=== PATIENT | male | born 1940 | race Caucasian/White ===

== ENCOUNTER → 2017-03-29 | Outpatient (CLI) | payer MEDICARE ==
[~2017-03-29] MED LIST: AMLO2.5T PO
== END | disposition home or self-care (01) ==
LOC: RAD 15:08
PROVIDERS: ATTEND Internal Medicine
DX: I67.82 Cerebral ischemia (principal); G31.9 Degenerative disease of nervous system, unspecified; H70.91 Unspecified mastoiditis, right ear; M50.30 Other cervical disc degeneration, unspecified cervical region; M48.02 Spinal stenosis, cervical region; M25.78 Osteophyte, vertebrae; R29.6 Repeated falls
CPT/HCPCS: 70551; 72141

== ENCOUNTER 2017-06-25 15:07 | Inpatient (IN) | payer MEDICARE ==
[~2017-06-25] VITALS: Ht 177.8 cm; Wt 88.3 kg
[2017-06-25] MEDS ORDERED: ASPI-496 PO (15:20)
[2017-06-25] MEDS ORDERED: SODIUM CHLORIDE FLUSH 10ML SYR IVF ONE (16:00)
[2017-06-25 16:19] LABS: HEMATOCRIT 45.8 % (39.2-51.8); HEMOGLOBIN 15.4 g/dL (13.7-18.0); WHITE BLOOD COUNT 9.1 x10^3/uL (3.4-10)
[2017-06-25 16:30] LABS: BLOOD UREA NITROGEN 15 mg/dL (7-18)
[2017-06-25 16:31] LABS: IS PT STATUS REG ER OR PRE ER? YES
[2017-06-25 16:37] LABS: ASPARTATE AMINO TRANSFERASE 26 U/L (15-37)
[2017-06-25] MEDS ORDERED: ACETAMINOPHEN 325 MG TABLET PO PRN (18:30)
[2017-06-25] MEDS ORDERED: POLYETHYLENE GLYCOL 17 GM PACKET PO PRN (18:30)
[2017-06-25] MEDS ORDERED: ONDANSETRON 2MG/ML, 2ML IVPush PRN (18:30)
[2017-06-25] MEDS ORDERED: BISACODYL 10 MG SUPP PR PRN (18:30)
[2017-06-25 20:18] VITALS: BP_SYST 121; BP_SYST 122; BP_SYST 124; BP_DIAS 80; BP_DIAS 84; BP_DIAS 86
[2017-06-25] MEDS: HEPARIN 5,000 UNITS/ML, 1ML SQ SCH (20:30)
[2017-06-25] MEDS: SODIUM CHLORIDE FLUSH 10ML SYR IVF SCH (20:30)
[2017-06-25 22:15] LABS: IS PT STATUS REG ER OR PRE ER? NO
[2017-06-26 02:00] VITALS: BP 110/71
[2017-06-26 04:26] VITALS: BP_SYST 119; BP_SYST 144; BP_SYST 149; BP_DIAS 86; BP_DIAS 91; BP_DIAS 96
[2017-06-26] MEDS: HEPARIN 5,000 UNITS/ML, 1ML SQ SCH ×2 (04:30→11:52)
[2017-06-26 05:43] LABS: IS PT STATUS REG ER OR PRE ER? NO
[2017-06-26 07:10] VITALS: BP 125/89
[2017-06-26] MEDS ORDERED: SENNA/DOCUSATE TABLET PO SCH (09:00)
[2017-06-26] MEDS: SODIUM CHLORIDE FLUSH 10ML SYR IVF SCH (09:00)
[2017-06-26] MEDS ORDERED: AMLODIPINE 2.5 MG TABLET PO SCH (09:00)
[2017-06-26] MEDS ORDERED: ASPIRIN 81 MG TABLET EC PO SCH (09:00)
[2017-06-26 14:43] VITALS: BP 126/82
== END 2017-06-26 16:04 | disposition home or self-care (01) | DRG 315 ==
LOC: ED 18:13 → EDIP 18:30 → 4WST 19:32 → DCLOUNGE 06-26 15:57
PROVIDERS: ADMIT Hospitalist; ATTEND Family Medicine
DX: I95.9 Hypotension, unspecified (principal); D68.69 Other thrombophilia; G20 Parkinson's disease; I48.2 Chronic atrial fibrillation; I35.1 Nonrheumatic aortic (valve) insufficiency; K76.0 Fatty (change of) liver, not elsewhere classified; G31.84 Mild cognitive impairment of uncertain or unknown etiology; I10 Essential (primary) hypertension; R55 Syncope and collapse; W18.39XA Other fall on same level, initial encounter; K80.20 Calculus of gallbladder without cholecystitis without obstruction; Y93.89 Activity, other specified; Y92.89 Other specified places as the place of occurrence of the external cause; Y99.8 Other external cause status
CPT/HCPCS: 36415; 70450; 71010; 76700; 80053; 83880; 84439; 84443; 84484; 85025; 85610; 85730; 93005; 93306; 93880; 99285; J1644; 92523-GN

== ENCOUNTER → 2017-09-18 | Outpatient (CLI) | payer MEDICARE ==
[~2017-09-18] MED LIST changes: +ASPI-496 PO
[2017-09-18 09:07] LABS: BASOPHILS # (AUTO) 0.02 x10^3/uL (0-0.1); BASOPHILS % (AUTO) 0 % (0-1); EOSINOPHILS # (AUTO) 0.22 x10^3/uL (0-0.4); EOSINOPHILS % (AUTO) 3 % (1-7); LYMPHOCYTES # (AUTO) 2.19 x10^3/uL (1-3.4); LYMPHOCYTES % (AUTO) 28 % (22-44); MD NO; MEAN CORPUSCULAR HEMOGLOBIN 32.1 pg (27.5-34.5); MEAN CORPUSCULAR HGB CONC 33.8 g/dL (33.2-36.2); MEAN CORPUSCULAR VOLUME 94.9 fL (81-97); MEAN PLATELET VOLUME 7.2 fL (7.4-10.4); MONOCYTES # (AUTO) 0.66 x10^3/uL (0.2-0.8); MONOCYTES % (AUTO) 9 % (2-9); NEUTROPHILS # (AUTO) 4.63 x10^3/uL (1.8-6.8); NEUTROPHILS % (AUTO) 60 % (42-75); PLATELET COUNT 256 x10^3/uL (130-400); RED BLOOD COUNT 5.01 x10^6/uL (4.38-5.82); RED CELL DISTRIBUTION WIDTH 13.7 % (9.4-14.8)
[2017-09-18 09:19] LABS: ALANINE AMINOTRANSFERASE 28 U/L (12-78); ALBUMIN 3.6 g/dL (3.4-5.0); ANION GAP 6 mmol/L (5-15); CALCIUM 8.4 mg/dL (8.5-10.1); CHLORIDE 110 mmol/L (98-107)
[2017-09-18 09:44] LABS: ALKALINE PHOSPHATASE 84 U/L (45-117); CREATININE 1.16 mg/dL (0.7-1.3); T4 (THYROXINE) 7.3 mcg/dL (4.5-12.1)
[2017-09-18 09:49] LABS: FOLATE LEVEL > 20.0 ng/mL (3.1-17.5)
[2017-09-18 10:48] LABS: HCT (SEDRATE) 47.6 % (39.2-51.8)
[2017-09-19 17:42] LABS: ANA SCREEN POSITIVE (Negative)
== END | disposition home or self-care (01) ==
LOC: LAB 08:47
PROVIDERS: ATTEND Specialist
DX: R27.0 Ataxia, unspecified (principal); Z79.899 Other long term (current) drug therapy
CPT/HCPCS: 36415; 80053; 82607; 82746; 84436; 84443; 84481; 85025; 85651; 86038; 86039

== ENCOUNTER 2018-05-14 16:52 | Emergency (ER) | payer MEDICARE ==
[~2018-05-14] VITALS: Ht 177.8 cm; Wt 90.0 kg
[~2018-05-14 16:52] MED LIST changes: -AMLO2.5T PO; +AMLO2.5T3 PO
[2018-05-14 17:25] LABS: BASOPHILS # (AUTO) 0.03 x10^3/uL (0-0.1); BASOPHILS % (AUTO) 0 % (0-1); EOSINOPHILS # (AUTO) 0.25 x10^3/uL (0-0.4); EOSINOPHILS % (AUTO) 4 % (1-7); LYMPHOCYTES # (AUTO) 2.59 x10^3/uL (1-3.4); LYMPHOCYTES % (AUTO) 36 % (22-44); MD NO; MEAN CORPUSCULAR HEMOGLOBIN 32.5 pg (27.5-34.5); MEAN CORPUSCULAR VOLUME 95.5 fL (81-97); MEAN PLATELET VOLUME 7.4 fL (7.4-10.4); MONOCYTES # (AUTO) 0.75 x10^3/uL (0.2-0.8); MONOCYTES % (AUTO) 11 % (2-9); NEUTROPHILS # (AUTO) 3.48 x10^3/uL (1.8-6.8); NEUTROPHILS % (AUTO) 49 % (42-75); PLATELET COUNT 255 x10^3/uL (130-400); RED BLOOD COUNT 4.85 x10^6/uL (4.38-5.82); RED CELL DISTRIBUTION WIDTH 13.8 % (9.4-14.8)
[2018-05-14] MEDS ORDERED: DIPH,PERTUSS(ACELL),TET VAC/PF 0.5 ML IM-VACC ONE ×2 (17:30→19:05)
[2018-05-14] MEDS ORDERED: LIDOCAINE 1%, 10ML INFIL ONE (17:30)
[2018-05-14 17:36] LABS: ALBUMIN 3.7 g/dL (3.4-5.0); ANION GAP 9 mmol/L (5-15); CALCIUM 8.8 mg/dL (8.5-10.1); CHLORIDE 110 mmol/L (98-107)
[2018-05-14] MEDS ORDERED: LIDOCAINE-MPF 1%, 5ML ONE (17:47)
[2018-05-14] MEDS ORDERED: LIDOCAINE 1%-EPI 1:100K, 30ML ONE (17:48)
[2018-05-14 18:41] VITALS: BP 158/102
[2018-05-14] MEDS ORDERED: BACITRACIN ZINC OINT 500U/GM, 0.9 GM ONE ×2 (18:43→19:16)
== END 2018-05-14 19:52 | disposition home or self-care (01) ==
LOC: ED 19:41
DX: S01.81XA Laceration without foreign body of other part of head, initial encounter (principal); I48.91 Unspecified atrial fibrillation; I10 Essential (primary) hypertension; Z79.899 Other long term (current) drug therapy; W19.XXXA Unspecified fall, initial encounter; Y93.H1 Activity, digging, shoveling and raking; Y99.8 Other external cause status; Y92.096 Garden or yard of other non-institutional residence as the place of occurrence of the external cause
CPT/HCPCS: 12053; 36415; 70450; 72125; 80048; 82040; 85025; 90471; 90715

== ENCOUNTER 2018-07-02 09:09 | Inpatient (IN) | payer MEDICARE ==
[~2018-07-02] VITALS: Ht 177.8 cm; Wt 88.9 kg
--- NOTE | 2018-07-02 09:15 | NUR ---
PT BETI ZAVALA AFTER A MGLF WHILE IN THE KITCHEN. PT WAS FOUND ON FLOOR BY . PT STATED HE WAS TRYING TO PUT ON HIS SOCKS IN THE KITCHEN. PT A&OX4. PT WITH HX: DEMENTIA. PT WITH LAC RIGHT HEAD. PT WITH PAIN ON RIGHT HIP. DRESSING ON HEAD APPLIED BY SALLY. PT PLACED IN ROOM AND PLACED ON BP AND CONT. PULSE OXIMETER. ASSESSMENT COMPLETED. MD AT BEDSIDE. IV STARTED IN FIELD BY SALLY. PT GIVEN WARM BLANKET. CALL LIGHT IN REACH. 2 SIDE RAILS UP.
[2018-07-02] MEDS ORDERED: FENTANYL PF 100 MCG/2ML ONE ×2 (09:22→12:06)
[2018-07-02] MEDS ORDERED: LIDOCAINE-MPF 1%, 5ML ONE (09:25)
[2018-07-02] MEDS: FENTANYL PF 100 MCG/2ML IVPush PRN ×6 (09:29→21:00)
[2018-07-02] MEDS ORDERED: LIDOCAINE 1%, 10ML INFIL ONE (09:30)
--- NOTE | 2018-07-02 09:32 | NUR ---
LAB INTO DRAW BLOOD. EKG DONE AND PRESENTED TO MD. WEBRE AT BEDSIDE FOR LIDOCAINE INJECTION
[2018-07-02] MEDS ORDERED: BACITRACIN ZINC OINT 500U/GM, 0.9 GM ONE (09:41)
--- NOTE | 2018-07-02 09:43 | NUR ---
PER PA, PT WITH ABRASION RIGHT EYEBROW. EYE CLEANED AND DRESSED WITH BACITRACIN DRESSING.
[2018-07-02 09:49] LABS: INTERNATIONAL NORMALIZED RATIO 1.09 (0.93-1.1); PROTHROMBIN TIME 11.5 Seconds (9.6-11.5)
[2018-07-02 09:50] LABS: ALANINE AMINOTRANSFERASE 29 U/L (12-78); ALBUMIN 3.8 g/dL (3.4-5.0); ANION GAP 5 mmol/L (5-15); CALCIUM 8.6 mg/dL (8.5-10.1); CHLORIDE 114 mmol/L (98-107); CREATININE 1.12 mg/dL (0.7-1.3)
[2018-07-02 09:52] LABS: ALKALINE PHOSPHATASE 86 U/L (45-117); BILIRUBIN,TOTAL 1.1 mg/dL (0.2-1.0); TOTAL PROTEIN 7.3 g/dL (6.4-8.2)
--- NOTE | 2018-07-02 10:36 | NUR ---
PT RESTING IN BED. PT A&OX4.
--- NOTE | 2018-07-02 10:54 | NUR ---
PT TAKEN TO RADIOLOGY
[2018-07-02] MEDS ORDERED: BIMA2.5D OP (11:05)
[2018-07-02] MEDS ORDERED: BRIM5DRO2 OP (11:06)
--- NOTE | 2018-07-02 11:08 | NUR ---
PT BACK FROM RADIOLOGY. PT PLACED ON BP, CARDIAC AND CONT. PULSE OXIMETER. AT BEDSIDE.
--- NOTE | 2018-07-02 11:11 | NUR ---
DR. CASTRO NEUROLOGIST AT BEDSIDE.
[2018-07-02 11:22] LABS: BASOPHILS % (AUTO) 0 % (0-1); EOSINOPHILS # (AUTO) 0.19 x10^3/uL (0-0.4); EOSINOPHILS % (AUTO) 2 % (1-7); LYMPHOCYTES # (AUTO) 1.83 x10^3/uL (1-3.4); LYMPHOCYTES % (AUTO) 19 % (22-44); MD NO; MEAN CORPUSCULAR HEMOGLOBIN 31.8 pg (27.5-34.5); MEAN CORPUSCULAR HGB CONC 33.3 g/dL (33.2-36.2); MEAN CORPUSCULAR VOLUME 95.7 fL (81-97); MEAN PLATELET VOLUME 8.2 fL (7.4-10.4); MONOCYTES # (AUTO) 0.36 x10^3/uL (0.2-0.8); MONOCYTES % (AUTO) 4 % (2-9); NEUTROPHILS % (AUTO) 75 % (42-75); PLATELET COUNT 230 x10^3/uL (130-400); RED BLOOD COUNT 5.01 x10^6/uL (4.38-5.82); RED CELL DISTRIBUTION WIDTH 13.6 % (9.4-14.8)
--- NOTE | 2018-07-02 12:52 | NUR ---
CONDOM CATH PLACED ON PATIENT. COULD NOT RETRACT FORESKIN AND CONDOM CATH PLACED ON FORESKIN. PATIENT CLEANED AND REPOSITIONED. REPORTS IMPROVEMENT IN PAIN
[2018-07-02] MEDS ORDERED: ONDANSETRON 2MG/ML, 2ML IVPush PRN (13:00)
[2018-07-02] MEDS ORDERED: POLYETHYLENE GLYCOL 17 GM PACKET PO PRN (13:00)
[2018-07-02] MEDS ORDERED: ACETAMINOPHEN 325 MG TABLET PO PRN (13:00)
[2018-07-02] MEDS ORDERED: LABETALOL 5MG/ML, 20ML IVPush PRN (13:00)
[2018-07-02] MEDS ORDERED: OXYcodone IR 5MG TABLET PO PRN (13:00)
[2018-07-02] MEDS ORDERED: ONDANSETRON ODT 4 MG PO PRN (13:00)
[2018-07-02] MEDS ORDERED: ENALAPRILAT 1.25 MG/ML, 2ML IVPush PRN (13:00)
[2018-07-02] MEDS ORDERED: morphine SULFATE 10 MG/ML, 1ML IVPush PRN (13:00)
--- NOTE | 2018-07-02 13:30 | NUR ---
pt with pain and medicated with fentanyl 50mcg iv.
--- NOTE | 2018-07-02 13:36 | NUR ---
ATTEMPTED TO CALL REPORT TO
--- NOTE | 2018-07-02 13:44 | NUR ---
REPORT CALLED TO DANA WHIPPLE.
--- NOTE | 2018-07-02 14:10 | NUR ---
pt transferred to floor.
[2018-07-02] MEDS: SODIUM CHLORIDE 0.9% 1,000 ML IV SCH (15:33)
[2018-07-02] MEDS ORDERED: TIMOLOL OP SCH (21:00)
[2018-07-02] MEDS ORDERED: BRIMONIDINE TART. OPHTH 0.2%, 5ML OP SCH (21:00)
[2018-07-02] MEDS ORDERED: BIMATOPROST OP SCH (21:00)
[2018-07-02] MEDS ORDERED: TIMOLOL OPHTH 0.5%, 5ML OP SCH (21:00)
[2018-07-02] MEDS ORDERED: BRIMONIDINE TARTRATE OP SCH (21:00)
[2018-07-03] MEDS: SODIUM CHLORIDE 0.9% 1,000 ML IV SCH ×2 (03:23→23:09)
[2018-07-03 04:00] VITALS: BP 137/89
[2018-07-03 05:51] LABS: ALBUMIN 3.2 g/dL (3.4-5.0); ANION GAP 5 mmol/L (5-15); CALCIUM 8.2 mg/dL (8.5-10.1); CHLORIDE 111 mmol/L (98-107)
[2018-07-03 05:56] LABS: ALANINE AMINOTRANSFERASE 24 U/L (12-78); ALKALINE PHOSPHATASE 80 U/L (45-117); CREATININE 0.98 mg/dL (0.7-1.3); TOTAL PROTEIN 6.3 g/dL (6.4-8.2)
[2018-07-03 06:06] LABS: BASOPHILS # (AUTO) 0.02 x10^3/uL (0-0.1); BASOPHILS % (AUTO) 0 % (0-1); EOSINOPHILS # (AUTO) 0.06 x10^3/uL (0-0.4); EOSINOPHILS % (AUTO) 1 % (1-7); LYMPHOCYTES # (AUTO) 1.94 x10^3/uL (1-3.4); LYMPHOCYTES % (AUTO) 15 % (22-44); MD NO; MEAN CORPUSCULAR HEMOGLOBIN 32.3 pg (27.5-34.5); MEAN CORPUSCULAR VOLUME 95.2 fL (81-97); MONOCYTES # (AUTO) 0.96 x10^3/uL (0.2-0.8); MONOCYTES % (AUTO) 8 % (2-9); NEUTROPHILS # (AUTO) 9.77 x10^3/uL (1.8-6.8); NEUTROPHILS % (AUTO) 77 % (42-75); PLATELET COUNT 202 x10^3/uL (130-400); RED CELL DISTRIBUTION WIDTH 13.4 % (9.4-14.8)
[2018-07-03] MEDS: FENTANYL PF 100 MCG/2ML IVPush PRN (06:32)
[2018-07-03] MEDS: SENNA/DOCUSATE TABLET PO SCH (09:00)
[2018-07-03] MEDS ORDERED: AMLODIPINE 2.5 MG TABLET PO SCH (09:00)
[2018-07-03] MEDS ORDERED: DONE10TA14 PO (09:55)
[2018-07-03] MEDS: METOPROLOL TARTRATE 25 MG TABLET PO SCH ×2 (09:57→17:08)
[2018-07-03] MEDS: LEVETIRACETAM 500 MG in SODIUM CHLORIDE 0.9% 100 ML IV SCH ×2 (13:07→23:09)
[2018-07-03 15:00] VITALS: BP 114/81
[2018-07-03 19:32] VITALS: BP 143/92
[2018-07-04 01:08] VITALS: BP 145/98
[2018-07-04] MEDS: METOPROLOL TARTRATE 25 MG TABLET PO SCH ×2 (08:00→21:44)
[2018-07-04 08:14] VITALS: BP 154/106
[2018-07-04] MEDS: AMLODIPINE 2.5 MG TABLET PO SCH (08:44)
[2018-07-04] MEDS: DONEPEZIL 10 MG TABLET PO SCH (08:44)
[2018-07-04] MEDS: SENNA/DOCUSATE TABLET PO SCH (08:44)
[2018-07-04] MEDS: LEVETIRACETAM 500 MG in SODIUM CHLORIDE 0.9% 100 ML IV SCH (11:43)
[2018-07-04 13:03] VITALS: BP 165/97
[2018-07-04] MEDS ORDERED: LABETALOL 20 MG/4 ML ONE (13:07)
[2018-07-04 13:42] VITALS: BP 122/85
[2018-07-04] MEDS: SODIUM CHLORIDE 0.9% 1,000 ML IV SCH ×2 (14:40→21:17)
[2018-07-04] MEDS ORDERED: FENTANYL PF 250 MCG/5ML ONE (15:46)
[2018-07-04] MEDS ORDERED: ROCURONIUM 10 MG/ML,10ML ONE (16:11)
[2018-07-04] MEDS ORDERED: PHENYLEPHRINE 10 MG/ML ONE (16:11)
[2018-07-04] MEDS ORDERED: ONDANSETRON 2MG/ML, 2ML ONE (16:11)
[2018-07-04] MEDS ORDERED: CEFAZOLIN 1,000 MG ONE (16:11)
[2018-07-04] MEDS ORDERED: PROPOFOL 50 ML ONE (16:25)
[2018-07-04] MEDS ORDERED: MORPHINE SULFATE 4 MG/ML, 1ML IVPush PRN (17:00)
[2018-07-04] MEDS ORDERED: ONDANSETRON 2MG/ML, 2ML IV PRN ×2 (17:00→21:00)
[2018-07-04] MEDS ORDERED: LABETALOL 5MG/ML, 20ML IV PRN (17:00)
[2018-07-04] MEDS ORDERED: FENTANYL PF 100 MCG/2ML IV PRN (17:00)
[2018-07-04] MEDS ORDERED: EPHEDRINE 50 MG/ML, 1ML IM PRN (17:00)
[2018-07-04] MEDS ORDERED: EPHEDRINE 50 MG/ML, 1ML IVPush PRN (17:00)
[2018-07-04] MEDS ORDERED: OXYcodone 5 MG/5 ML ORAL.SOL UDC PO PRN ×2 (17:00→21:00)
[2018-07-04] MEDS ORDERED: VASOPRESSIN 20 UNIT/ML, 1ML ONE (17:03)
[2018-07-04 20:49] LABS: BASOPHILS % (AUTO) 0 % (0-1); EOSINOPHILS % (AUTO) 0 % (1-7); LYMPHOCYTES # (AUTO) 1.33 x10^3/uL (1-3.4); LYMPHOCYTES % (AUTO) 8 % (22-44); MD NO; MEAN CORPUSCULAR HEMOGLOBIN 32.3 pg (27.5-34.5); MEAN CORPUSCULAR HGB CONC 34.1 g/dL (33.2-36.2); MEAN CORPUSCULAR VOLUME 94.7 fL (81-97); MEAN PLATELET VOLUME 7.8 fL (7.4-10.4); MONOCYTES # (AUTO) 1.53 x10^3/uL (0.2-0.8); MONOCYTES % (AUTO) 9 % (2-9); NEUTROPHILS # (AUTO) 13.95 x10^3/uL (1.8-6.8); NEUTROPHILS % (AUTO) 83 % (42-75); PLATELET COUNT 151 x10^3/uL (130-400); RED BLOOD COUNT 4.85 x10^6/uL (4.38-5.82); RED CELL DISTRIBUTION WIDTH 13.1 % (9.4-14.8)
[2018-07-04 20:50] LABS: ALBUMIN 2.8 g/dL (3.4-5.0); ANION GAP 9 mmol/L (5-15); CALCIUM 8.1 mg/dL (8.5-10.1); CHLORIDE 110 mmol/L (98-107); CREATININE 1.04 mg/dL (0.7-1.3)
[2018-07-04] MEDS ORDERED: SENNA/DOCUSATE TABLET PO PRN (21:00)
[2018-07-04] MEDS ORDERED: BISACODYL 10 MG SUPP PR PRN (21:00)
[2018-07-04] MEDS ORDERED: ALUMINUM/MAG/SIMETHICONE 30 ML UDC PO PRN (21:00)
[2018-07-04] MEDS ORDERED: MAGNESIUM HYDROXIDE 8%, 30ML UDC PO PRN (21:00)
[2018-07-04] MEDS: CEFAZOLIN PMX 2GM/50ML 50 ML IVPB SCH (21:34)
[2018-07-04] MEDS: ACETAMINOPHEN 325 MG TABLET PO SCH (21:44)
[2018-07-04] MEDS: DOCUSATE 100 MG CAPSULE PO SCH (21:44)
[2018-07-05] MEDS: LEVETIRACETAM 500 MG in SODIUM CHLORIDE 0.9% 100 ML IV SCH ×3 (00:20→22:58)
[2018-07-05] MEDS: ACETAMINOPHEN 325 MG TABLET PO SCH ×4 (04:16→22:57)
[2018-07-05] MEDS: CEFAZOLIN PMX 2GM/50ML 50 ML IVPB SCH (04:52)
[2018-07-05] MEDS: METOPROLOL TARTRATE 25 MG TABLET PO SCH ×3 (05:51→18:00)
[2018-07-05 05:58] LABS: ANION GAP 8 mmol/L (5-15); BASOPHILS # (AUTO) 0.05 x10^3/uL (0-0.1); BASOPHILS % (AUTO) 0 % (0-1); CALCIUM 7.8 mg/dL (8.5-10.1); CHLORIDE 112 mmol/L (98-107); CREATININE 0.92 mg/dL (0.7-1.3); EOSINOPHILS # (AUTO) 0.03 x10^3/uL (0-0.4); EOSINOPHILS % (AUTO) 0 % (1-7); LYMPHOCYTES # (AUTO) 1.51 x10^3/uL (1-3.4); LYMPHOCYTES % (AUTO) 13 % (22-44); MD NO; MEAN CORPUSCULAR HEMOGLOBIN 32.5 pg (27.5-34.5); MEAN CORPUSCULAR HGB CONC 34.5 g/dL (33.2-36.2); MEAN CORPUSCULAR VOLUME 94.1 fL (81-97); MEAN PLATELET VOLUME 7.7 fL (7.4-10.4); MONOCYTES % (AUTO) 10 % (2-9); NEUTROPHILS # (AUTO) 8.81 x10^3/uL (1.8-6.8); NEUTROPHILS % (AUTO) 77 % (42-75); PLATELET COUNT 143 x10^3/uL (130-400); RED BLOOD COUNT 4.14 x10^6/uL (4.38-5.82)
[2018-07-05] MEDS: SODIUM CHLORIDE 0.9% 1,000 ML IV SCH ×2 (06:43→18:34)
[2018-07-05] MEDS: SENNA/DOCUSATE TABLET PO SCH (08:36)
[2018-07-05] MEDS: AMLODIPINE 2.5 MG TABLET PO SCH (08:36)
[2018-07-05] MEDS: DONEPEZIL 10 MG TABLET PO SCH (09:00)
[2018-07-05] MEDS: DOCUSATE 100 MG CAPSULE PO SCH ×2 (09:00→20:15)
[2018-07-05] MEDS ORDERED: COMBIGAN OP SCH (12:00)
[2018-07-05 13:05] VITALS: BP 120/85
[2018-07-05 17:49] VITALS: BP 119/81
[2018-07-05] MEDS: COMBIGAN OP SCH (20:13)
[2018-07-05 21:10] VITALS: BP 106/73
[2018-07-06 02:03] VITALS: BP 98/67
[2018-07-06] MEDS: METOPROLOL TARTRATE 25 MG TABLET PO SCH ×2 (05:01→18:23)
[2018-07-06] MEDS: ACETAMINOPHEN 325 MG TABLET PO SCH ×3 (05:01→18:21)
[2018-07-06 08:15] VITALS: BP 124/72
[2018-07-06 10:04] VITALS: BP 112/75
[2018-07-06] MEDS: AMLODIPINE 2.5 MG TABLET PO SCH (10:08)
[2018-07-06] MEDS: SENNA/DOCUSATE TABLET PO SCH (10:09)
[2018-07-06] MEDS: DOCUSATE 100 MG CAPSULE PO SCH ×2 (10:13→21:06)
[2018-07-06] MEDS: DONEPEZIL 10 MG TABLET PO SCH (10:13)
[2018-07-06] MEDS: COMBIGAN OP SCH ×2 (10:13→21:00)
[2018-07-06] MEDS: LEVETIRACETAM 500 MG in SODIUM CHLORIDE 0.9% 100 ML IV SCH ×2 (11:52→23:24)
[2018-07-06 14:26] VITALS: BP 126/83
[2018-07-06 19:46] VITALS: BP 126/80
[2018-07-07] MEDS: ACETAMINOPHEN 325 MG TABLET PO SCH ×4 (01:55→21:17)
[2018-07-07 02:19] VITALS: BP 146/89
[2018-07-07] MEDS: METOPROLOL TARTRATE 25 MG TABLET PO SCH ×2 (06:15→17:52)
[2018-07-07 07:12] VITALS: BP 118/73
[2018-07-07] MEDS: AMLODIPINE 2.5 MG TABLET PO SCH (09:20)
[2018-07-07] MEDS: DONEPEZIL 10 MG TABLET PO SCH (09:20)
[2018-07-07] MEDS: SENNA/DOCUSATE TABLET PO SCH (09:21)
[2018-07-07] MEDS: COMBIGAN OP SCH ×2 (09:21→21:00)
[2018-07-07] MEDS: DOCUSATE 100 MG CAPSULE PO SCH ×2 (09:21→21:17)
[2018-07-07] MEDS: SODIUM CHLORIDE 0.9% 1,000 ML IV SCH (09:35)
[2018-07-07] MEDS: LEVETIRACETAM 500 MG in SODIUM CHLORIDE 0.9% 100 ML IV SCH ×2 (10:57→23:57)
[2018-07-07 12:09] VITALS: BP 140/90
[2018-07-07 17:46] VITALS: BP 138/88
[2018-07-07 19:51] VITALS: BP 159/93
[2018-07-08 01:38] VITALS: BP 132/87
[2018-07-08] MEDS: ACETAMINOPHEN 325 MG TABLET PO SCH ×4 (01:54→21:08)
[2018-07-08] MEDS: METOPROLOL TARTRATE 25 MG TABLET PO SCH ×2 (06:10→17:46)
[2018-07-08 06:47] VITALS: BP 132/84
[2018-07-08] MEDS: DOCUSATE 100 MG CAPSULE PO SCH ×2 (08:16→21:08)
[2018-07-08] MEDS: DONEPEZIL 10 MG TABLET PO SCH (08:17)
[2018-07-08] MEDS: SENNA/DOCUSATE TABLET PO SCH (08:17)
[2018-07-08] MEDS: AMLODIPINE 2.5 MG TABLET PO SCH (08:17)
[2018-07-08] MEDS: COMBIGAN OP SCH ×2 (08:21→21:00)
[2018-07-08] MEDS: LEVETIRACETAM 500 MG in SODIUM CHLORIDE 0.9% 100 ML IV SCH ×2 (10:57→23:13)
[2018-07-08] MEDS: SODIUM CHLORIDE 0.9% 1,000 ML IV SCH (10:57)
[2018-07-08 12:38] VITALS: BP 132/80
[2018-07-08] MEDS ORDERED: METO25TA35 PO (17:36)
[2018-07-08] MEDS ORDERED: LACTULOSE 20 GM/30 ML UDC PO PRN (18:00)
[2018-07-08] MEDS ORDERED: BISACODYL 10 MG SUPP PR PRN (18:00)
[2018-07-08] MEDS ORDERED: PINK LADY ENEMA 490 ML BOTTLE PR PRN (18:00)
[2018-07-08 19:18] VITALS: BP 138/90
[2018-07-09 01:34] VITALS: BP 148/86
[2018-07-09] MEDS: ACETAMINOPHEN 325 MG TABLET PO SCH ×2 (01:51→09:49)
[2018-07-09] MEDS: METOPROLOL TARTRATE 25 MG TABLET PO SCH (05:02)
[2018-07-09 05:15] LABS: BASOPHILS # (AUTO) 0.06 x10^3/uL (0-0.1); BASOPHILS % (AUTO) 1 % (0-1); EOSINOPHILS # (AUTO) 0.25 x10^3/uL (0-0.4); EOSINOPHILS % (AUTO) 2 % (1-7); LYMPHOCYTES # (AUTO) 2.13 x10^3/uL (1-3.4); LYMPHOCYTES % (AUTO) 20 % (22-44); MD NO; MEAN CORPUSCULAR HEMOGLOBIN 31.9 pg (27.5-34.5); MEAN CORPUSCULAR HGB CONC 33.7 g/dL (33.2-36.2); MEAN CORPUSCULAR VOLUME 94.8 fL (81-97); MEAN PLATELET VOLUME 7.5 fL (7.4-10.4); MONOCYTES # (AUTO) 1.18 x10^3/uL (0.2-0.8); MONOCYTES % (AUTO) 11 % (2-9); NEUTROPHILS # (AUTO) 7.28 x10^3/uL (1.8-6.8); NEUTROPHILS % (AUTO) 67 % (42-75); PLATELET COUNT 215 x10^3/uL (130-400); RED BLOOD COUNT 3.78 x10^6/uL (4.38-5.82); RED CELL DISTRIBUTION WIDTH 13.4 % (9.4-14.8)
[2018-07-09 05:22] LABS: ANION GAP 6 mmol/L (5-15); CHLORIDE 109 mmol/L (98-107)
[2018-07-09 05:51] LABS: CALCIUM 7.9 mg/dL (8.5-10.1); CREATININE 0.81 mg/dL (0.7-1.3)
[2018-07-09 07:05] VITALS: BP 140/92
[2018-07-09] MEDS ORDERED: CYAN10005 PO (07:30)
[2018-07-09] MEDS ORDERED: ERGO500017 PO (07:30)
[2018-07-09] MEDS ORDERED: DOCUSATE 50 MG/5 ML, 10ML UDC NG SCH (09:00)
[2018-07-09] MEDS ORDERED: ERGOCALCIFEROL 50,000 UNIT CAPSULE PO SCH (09:00)
[2018-07-09] MEDS ORDERED: CYANOCOBALAMIN 1,000 MCG TABLET PO SCH (09:00)
[2018-07-09] MEDS: AMLODIPINE 2.5 MG TABLET PO SCH (09:49)
[2018-07-09] MEDS: DOCUSATE 100 MG CAPSULE PO SCH (09:51)
[2018-07-09] MEDS: DONEPEZIL 10 MG TABLET PO SCH (09:51)
[2018-07-09] MEDS: COMBIGAN OP SCH (09:52)
[2018-07-09] MEDS: SENNA/DOCUSATE TABLET PO SCH (09:52)
[2018-07-09] MEDS: LEVETIRACETAM 500 MG in SODIUM CHLORIDE 0.9% 100 ML IV SCH (11:00)
[2018-07-09 12:38] VITALS: BP 134/88
== END 2018-07-09 14:04 | DRG 956 ==
LOC: ED 09:55 → EDIP 11:54 → CCU 14:19 → 5SO 07-03 14:40 → CCU 07-04 19:05 → 5SO 07-05 10:04
PROVIDERS: ADMIT Internal Medicine; ATTEND Internal Medicine
PROC: 0SRR0J9 Replacement of Right Hip Joint, Femoral Surface with Synthetic Substitute, Cemented, Open Approach (ICD-10-PCS; principal; 2018-07-04 16:00)
DX: S72.011A Unspecified intracapsular fracture of right femur, initial encounter for closed fracture (principal); S06.6X9A Traumatic subarachnoid hemorrhage with loss of consciousness of unspecified duration, initial encounter; S06.5X9A Traumatic subdural hemorrhage with loss of consciousness of unspecified duration, initial encounter; D68.69 Other thrombophilia; S06.2X9A Diffuse traumatic brain injury with loss of consciousness of unspecified duration, initial encounter; I48.2 Chronic atrial fibrillation; W18.39XA Other fall on same level, initial encounter; Y93.89 Activity, other specified; Y99.8 Other external cause status; F03.90 Unspecified dementia, unspecified severity, without behavioral disturbance, psychotic disturbance, mood disturbance, and anxiety; Z98.42 Cataract extraction status, left eye; Z98.41 Cataract extraction status, right eye; I35.1 Nonrheumatic aortic (valve) insufficiency; I10 Essential (primary) hypertension; M47.812 Spondylosis without myelopathy or radiculopathy, cervical region; S40.011A Contusion of right shoulder, initial encounter; Y92.000 Kitchen of unspecified non-institutional (private) residence as the place of occurrence of the external cause; Z66 Do not resuscitate; Z82.49 Family history of ischemic heart disease and other diseases of the circulatory system
CPT/HCPCS: 36415; 70450; 71045; 72125; 80048; 80053; 82040; 82306; 82607; 83735; 84443; 85025; 85610; 85730; 87081; 87147; 93005; 99291; C1713; G0378; J0690; J1953; J2405; J2704; J3010; J3490; C1762; C1776; J2370; J7030

== ENCOUNTER 2018-07-17 15:23 | Inpatient (IN) | payer MEDICARE ==
[~2018-07-17] VITALS: Ht 175.3 cm; Wt 93.3 kg
[~2018-07-17 15:23] MED LIST changes: -AMLO2.5T3 PO; +AMLO2.5T5 PO; +BIMA2.5D OP; +BRIM5DRO2 OP; +CYAN10005 PO; +DONE10TA14 PO; +ERGO500017 PO; +METO25TA35 PO
[2018-07-17] MEDS ORDERED: PROPOFOL 10 MG/ML, 20ML IVPush ONE (16:00)
[2018-07-17] MEDS ORDERED: PLEASE ENTER HEIGHT AND WEIGHT MC SCH (16:00)
[2018-07-17] MEDS ORDERED: SODIUM CHLORIDE FLUSH 10ML SYR IVF ONE (16:00)
[2018-07-17] MEDS ORDERED: PROPOFOL 10 MG/ML, 20ML ONE ×2 (16:01→19:30)
--- NOTE | 2018-07-17 16:11 | NUR ---
PATIENT ARRIVED TO ED VIA EMS FOR C/O R HIP DISLOCATION S/P HIP SURGERY AT THIS FACILITY 07/03. PATIENT CONFUSED- BASELINE MENTAL STATUS FOR PATIENT, UNABLE TO STATE IF HE HAD A FALL. DENIES PAIN AT THIS TIME. REPORT TO JESSIKA CHEUNG RN. PLANNED FOR SEDATION TO REDUCE HIP- PT AND FAMILY AWARE OF PLAN.
--- NOTE | 2018-07-17 16:15 | NUR ---
REPORT RECEIVED FROM MAGNOLIA WHIPPLE, ASSUMING CARE OF PT AT THIS TIME. NOTED SHORTENING AND INTERNAL ROTATION OF RIGHT LEG, CMS INTACT. AT BEDSIDE. CONSENT SIGNED FOR CON. SED. FOR REDUCTION OF RIGHT HIP. PT STATES NOT IN PAIN AT THIS TIME. AWAITING RAD REPORT. VSS. PHILLIPS. CALL LIGHT WITHIN REACH
[2018-07-17] MEDS ORDERED: METO25TA35 PO (16:37)
[2018-07-17] MEDS ORDERED: ACET-1757 PO (16:42)
[2018-07-17] MEDS ORDERED: NYST1000 PO (17:27)
--- NOTE | 2018-07-17 17:28 | NUR ---
REDUCTION UNSUCCESSFUL. PT NATALIIA LBE TRANSFERRED TO OR THEN TO FLOOR. PT CURRENTLY RECOVERED FROM SEDATION. VSS. PT STATES NO PAIN AT THIS TIME. WILL CONTINUE TO MONITOR. FAMILY AT BEDSIDE. CALL LIGHT WITHIN REACH.
[2018-07-17 17:36] LABS: BASOPHILS # (AUTO) 0.05 x10^3/uL (0-0.1); BASOPHILS % (AUTO) 0 % (0-1); EOSINOPHILS # (AUTO) 0.17 x10^3/uL (0-0.4); EOSINOPHILS % (AUTO) 1 % (1-7); LYMPHOCYTES # (AUTO) 1.84 x10^3/uL (1-3.4); LYMPHOCYTES % (AUTO) 11 % (22-44); MD NO; MEAN CORPUSCULAR HEMOGLOBIN 31.3 pg (27.5-34.5); MEAN CORPUSCULAR HGB CONC 33.4 g/dL (33.2-36.2); MEAN CORPUSCULAR VOLUME 93.7 fL (81-97); MEAN PLATELET VOLUME 7.1 fL (7.4-10.4); MONOCYTES # (AUTO) 1.12 x10^3/uL (0.2-0.8); MONOCYTES % (AUTO) 7 % (2-9); NEUTROPHILS # (AUTO) 13.37 x10^3/uL (1.8-6.8); NEUTROPHILS % (AUTO) 81 % (42-75); PLATELET COUNT 286 x10^3/uL (130-400); RED BLOOD COUNT 4.06 x10^6/uL (4.38-5.82); RED CELL DISTRIBUTION WIDTH 13.2 % (9.4-14.8)
[2018-07-17 17:46] LABS: ALBUMIN 2.7 g/dL (3.4-5.0); ANION GAP 7 mmol/L (5-15); CALCIUM 8.3 mg/dL (8.5-10.1); CHLORIDE 105 mmol/L (98-107)
[2018-07-17 17:47] LABS: CREATININE 0.85 mg/dL (0.7-1.3)
--- NOTE | 2018-07-17 17:54 | NUR ---
HOSPITALIST AND EDMD TO BEDSIDE. PT AND FAMILY UPDATED ON POC. VSS. WAITING FOR TRANSFER TO OR AT THIS TIME.
[2018-07-17] MEDS ORDERED: LABETALOL 5MG/ML, 20ML IVPush PRN (18:00)
[2018-07-17] MEDS ORDERED: ACETAMINOPHEN 325 MG TABLET PO PRN ×2 (18:00→20:30)
[2018-07-17] MEDS ORDERED: hydrALAzine 20 MG/ML, 1ML IVPush PRN (18:00)
[2018-07-17] MEDS ORDERED: KETOROLAC 30 MG/1 ML IV PRN (18:00)
[2018-07-17] MEDS ORDERED: ENOXAPARIN 40 MG/0.4 ML SQ SCH (18:00)
[2018-07-17] MEDS ORDERED: ONDANSETRON 2MG/ML, 2ML IVPush PRN (18:00)
[2018-07-17] MEDS ORDERED: morphine SULFATE 10 MG/ML, 1ML IVPush PRN (18:00)
--- NOTE | 2018-07-17 18:29 | NUR ---
REPORT GIVEN TO PRE OP. PT AND FAMILY UPDATED ON POC. BASELINE EKG OBTAINED. READY FOR OR TO OB/GYN PHYSICIAN PATIENT.
[2018-07-17] MEDS ORDERED: ROPIvacaine/PF 0.5%, 30 ML ONE (19:00)
[2018-07-17] MEDS ORDERED: FENTANYL PF 100 MCG/2ML ONE ×2 (19:16→20:53)
[2018-07-17] MEDS ORDERED: ROCURONIUM 10 MG/ML,10ML ONE (19:30)
[2018-07-17] MEDS ORDERED: CEFAZOLIN 1,000 MG ONE (19:30)
[2018-07-17] MEDS ORDERED: METOPROLOL 1 MG/ML, 5ML ONE (19:30)
[2018-07-17] MEDS ORDERED: OXYcodone 5 MG/5 ML ORAL.SOL UDC PO PRN (20:30)
[2018-07-17] MEDS ORDERED: hydrALAzine 20 MG/ML, 1ML IV PRN (20:30)
[2018-07-17] MEDS ORDERED: ALBUTEROL/IPRATROPIUM 2.5MG/0.5MG, 3 ML NPPB PRN (20:30)
[2018-07-17] MEDS ORDERED: METOPROLOL 1 MG/ML, 5ML IV PRN ×2 (20:30)
[2018-07-17] MEDS ORDERED: ONDANSETRON 2MG/ML, 2ML IV PRN ×2 (20:30)
[2018-07-17] MEDS ORDERED: PROMETHAZINE 25 MG/ML, 1ML IV PRN (20:30)
[2018-07-17] MEDS ORDERED: FENTANYL PF 100 MCG/2ML IV PRN ×2 (20:30)
[2018-07-17] MEDS: NYSTATIN 500,000 UNITS/5 ML UDC PO SCH (21:00)
[2018-07-17] MEDS: BRIMONIDINE TARTRATE OP SCH (21:00)
[2018-07-17] MEDS: TIMOLOL OP SCH (21:00)
[2018-07-17] MEDS: BIMATOPROST OP SCH (21:00)
[2018-07-17] MEDS ORDERED: OXYcodone 5 MG/5 ML ORAL.SOL UDC ONE (22:03)
[2018-07-17 23:12] VITALS: BP 102/59
[2018-07-17] MEDS ORDERED: DIGOXIN 0.25 MG/ML, 2ML IVPush ONE (23:30)
[2018-07-17] MEDS ORDERED: SODIUM CHLORIDE 0.9% 1,000ML IVBOLUS ONE (23:30)
[2018-07-18 03:55] VITALS: BP 97/66
[2018-07-18] MEDS ORDERED: DIGOXIN 0.25 MG/ML, 2ML IVPush ONE (05:30)
[2018-07-18 06:19] LABS: MEAN CORPUSCULAR HEMOGLOBIN 30.6 pg (27.5-34.5); MEAN CORPUSCULAR HGB CONC 32.8 g/dL (33.2-36.2); MEAN CORPUSCULAR VOLUME 93.2 fL (81-97); MEAN PLATELET VOLUME 6.5 fL (7.4-10.4); PLATELET COUNT 223 x10^3/uL (130-400); RED BLOOD COUNT 3.59 x10^6/uL (4.38-5.82); RED CELL DISTRIBUTION WIDTH 13.5 % (9.4-14.8)
[2018-07-18 06:34] LABS: ANION GAP 6 mmol/L (5-15); CHLORIDE 108 mmol/L (98-107)
[2018-07-18 06:45] LABS: MD YES
[2018-07-18 06:46] LABS: <PLATELET ESTIMATE> ADEQUATE; <RBC MORPHOLOGY> NORMAL; BAND#(MANUAL) 1.47 x10^3/uL; BANDS%(MANUAL) 7 % (0-7); LYMPH#(MANUAL) 1.89 x10^3/uL (1-3.4); LYMPHS% (MANUAL) 9 % (22-44); MONOS#(MANUAL) 0.84 x10^3/uL (0.3-2.7); MONOS% (MANUAL) 4 % (2-9); SEGS% (MANUAL) 80 % (42-75)
[2018-07-18 06:47] LABS: <PLT MORPHOLOGY> NORMAL PLT MORPH
[2018-07-18 07:14] VITALS: BP 103/60
[2018-07-18] MEDS ORDERED: AMLODIPINE 5 MG TABLET PO SCH (09:00)
[2018-07-18] MEDS ORDERED: DONEPEZIL 10 MG TABLET PO SCH (09:00)
[2018-07-18] MEDS ORDERED: METOPROLOL TARTRATE 25 MG TABLET PO SCH (09:00)
[2018-07-18] MEDS: NYSTATIN 500,000 UNITS/5 ML UDC PO SCH ×2 (09:20→22:06)
[2018-07-18] MEDS: TIMOLOL OP SCH ×2 (09:28→22:06)
[2018-07-18] MEDS: BRIMONIDINE TARTRATE OP SCH ×2 (09:28→22:06)
[2018-07-18] MEDS ORDERED: ATROPINE SYRINGE 0.1 MG/ML, 10ML ONE (09:49)
[2018-07-18] MEDS ORDERED: SODIUM CHLORIDE 0.9% 1,000 ML IV SCH (10:00)
[2018-07-18] MEDS ORDERED: METOPROLOL 1 MG/ML, 5ML IVPush ONE (10:30)
[2018-07-18] MEDS: CEFTRIAXONE PMX 2GM/50ML 50 ML IV SCH (10:57)
[2018-07-18 10:59] LABS: MEAN CORPUSCULAR HEMOGLOBIN 30.6 pg (27.5-34.5); MEAN CORPUSCULAR VOLUME 92.6 fL (81-97); MEAN PLATELET VOLUME 6.9 fL (7.4-10.4); PLATELET COUNT 226 x10^3/uL (130-400); RED CELL DISTRIBUTION WIDTH 13.4 % (9.4-14.8)
[2018-07-18 11:11] LABS: ALBUMIN 2.6 g/dL (3.4-5.0); ANION GAP 3 mmol/L (5-15); CALCIUM 8.4 mg/dL (8.5-10.1); CHLORIDE 109 mmol/L (98-107); CREATININE 0.88 mg/dL (0.7-1.3)
[2018-07-18 11:21] LABS: BASOPHILS # (AUTO) 0.02 x10^3/uL (0-0.1); BASOPHILS % (AUTO) 0 % (0-1); EOSINOPHILS # (AUTO) 0.04 x10^3/uL (0-0.4); EOSINOPHILS % (AUTO) 0 % (1-7); LYMPHOCYTES # (AUTO) 1.45 x10^3/uL (1-3.4); LYMPHOCYTES % (AUTO) 7 % (22-44); MD SCAN; MONOCYTES # (AUTO) 1.08 x10^3/uL (0.2-0.8); MONOCYTES % (AUTO) 6 % (2-9); NEUTROPHILS # (AUTO) 17.21 x10^3/uL (1.8-6.8); NEUTROPHILS % (AUTO) 87 % (42-75)
[2018-07-18] MEDS ORDERED: morphine SULFATE 10 MG/ML, 1ML IV PRN (11:30)
[2018-07-18] MEDS ORDERED: HYDROcodone/APAP 7.5-325MG/15ML UDC PO PRN (11:30)
[2018-07-18] MEDS ORDERED: ONDANSETRON 2MG/ML, 2ML IV PRN (11:30)
[2018-07-18] MEDS ORDERED: OXYcodone 5 MG/5 ML ORAL.SOL UDC PO PRN (11:30)
[2018-07-18] MEDS: DOXYCYCLINE 100 MG in DEXTROSE 5% 250 ML IV SCH ×2 (11:40→22:21)
[2018-07-18] MEDS: SODIUM CHLORIDE 0.9% 1,000 ML IV SCH ×2 (11:41→17:17)
[2018-07-18] MEDS: ACETAMINOPHEN 500 MG TABLET PO SCH ×3 (12:10→22:01)
[2018-07-18 12:59] VITALS: BP 122/74
[2018-07-18 15:35] VITALS: BP 125/80
[2018-07-18] MEDS ORDERED: ACETAMINOPHEN 500 MG TABLET PO SCH (16:00)
[2018-07-18] MEDS ORDERED: ENOXAPARIN 40 MG/0.4 ML SQ SCH (17:00)
[2018-07-18 20:38] VITALS: BP 117/76
[2018-07-18] MEDS: BIMATOPROST OP SCH (22:06)
[2018-07-19] MEDS: METOPROLOL TARTRATE 25 MG TABLET PO SCH ×4 (03:26→21:35)
[2018-07-19 03:28] VITALS: BP 150/95
[2018-07-19] MEDS: ACETAMINOPHEN 500 MG TABLET PO SCH ×5 (06:12→21:35)
[2018-07-19 07:48] VITALS: BP 143/93
[2018-07-19] MEDS: AMLODIPINE 10 MG TAB PO SCH (09:55)
[2018-07-19] MEDS: CEFTRIAXONE PMX 2GM/50ML 50 ML IV SCH (10:01)
[2018-07-19] MEDS: NYSTATIN 500,000 UNITS/5 ML UDC PO SCH ×3 (10:01→21:35)
[2018-07-19] MEDS: BRIMONIDINE TARTRATE OP SCH ×2 (10:02→21:00)
[2018-07-19] MEDS: TIMOLOL OP SCH ×2 (10:02→21:00)
[2018-07-19] MEDS: DOXYCYCLINE 100 MG in DEXTROSE 5% 250 ML IV SCH (10:41)
[2018-07-19] MEDS ORDERED: VANCOMYCIN PER PHARMACY MC PRN (12:30)
[2018-07-19 13:27] VITALS: BP 98/62
[2018-07-19] MEDS ORDERED: PHARMACOKINETIC MONITORING MC PRN (14:00)
[2018-07-19] MEDS ORDERED: VANCOMYCIN 1,800 MG in SODIUM CHLORIDE 0.9% 250 ML IV SCH (14:00)
[2018-07-19 14:58] VITALS: BP 123/65
[2018-07-19] MEDS ORDERED: POLYETHYLENE GLYCOL 17 GM PACKET PO PRN (16:00)
[2018-07-19] MEDS: DOCUSATE 100 MG CAPSULE PO SCH (17:06)
[2018-07-19 18:46] VITALS: BP 128/90
[2018-07-19] MEDS: BIMATOPROST OP SCH (21:00)
[2018-07-19 21:49] VITALS: BP 119/79
[2018-07-20] VITALS (9 sets, daily range): BP systolic 100–142; BP diastolic 52–87
[2018-07-20] MEDS: ACETAMINOPHEN 500 MG TABLET PO SCH ×3 (04:59→21:43)
[2018-07-20 08:17] LABS: MEAN CORPUSCULAR HEMOGLOBIN 30.1 pg (27.5-34.5); MEAN CORPUSCULAR HGB CONC 32.7 g/dL (33.2-36.2); MEAN PLATELET VOLUME 6.8 fL (7.4-10.4); PLATELET COUNT 207 x10^3/uL (130-400); RED BLOOD COUNT 3.26 x10^6/uL (4.38-5.82); RED CELL DISTRIBUTION WIDTH 13.3 % (9.4-14.8)
[2018-07-20 08:25] LABS: ANION GAP 8 mmol/L (5-15); CALCIUM 7.9 mg/dL (8.5-10.1); CHLORIDE 106 mmol/L (98-107); CREATININE 0.68 mg/dL (0.7-1.3)
[2018-07-20 08:36] LABS: BASOPHILS # (AUTO) 0.03 x10^3/uL (0-0.1); BASOPHILS % (AUTO) 0 % (0-1); EOSINOPHILS # (AUTO) 0.04 x10^3/uL (0-0.4); EOSINOPHILS % (AUTO) 0 % (1-7); LYMPHOCYTES # (AUTO) 1.19 x10^3/uL (1-3.4); LYMPHOCYTES % (AUTO) 10 % (22-44); MD SCAN; MONOCYTES # (AUTO) 0.79 x10^3/uL (0.2-0.8); MONOCYTES % (AUTO) 7 % (2-9); NEUTROPHILS # (AUTO) 10.13 x10^3/uL (1.8-6.8); NEUTROPHILS % (AUTO) 83 % (42-75)
[2018-07-20] MEDS: AMLODIPINE 10 MG TAB PO SCH (08:56)
[2018-07-20] MEDS: METOPROLOL TARTRATE 25 MG TABLET PO SCH (08:57)
[2018-07-20] MEDS: BRIMONIDINE TARTRATE OP SCH ×2 (09:00→21:43)
[2018-07-20] MEDS: TIMOLOL OP SCH ×2 (09:00→21:43)
[2018-07-20] MEDS: CEFTRIAXONE PMX 2GM/50ML 50 ML IV SCH (09:40)
[2018-07-20] MEDS: DOCUSATE 100 MG CAPSULE PO SCH (10:01)
[2018-07-20] MEDS: NYSTATIN 500,000 UNITS/5 ML UDC PO SCH ×2 (10:01→21:43)
[2018-07-20] MEDS ORDERED: ACETAMINOPHEN 500 MG TABLET PO SCH (16:00)
[2018-07-20] MEDS: BISACODYL 10 MG SUPP PR PRN (17:02)
[2018-07-20] MEDS: CARVEDILOL 12.5 MG TABLET PO SCH (21:42)
[2018-07-20] MEDS: BIMATOPROST OP SCH (21:43)
[2018-07-20] MEDS: SODIUM CHLORIDE FLUSH 10ML SYR IVF SCH (21:43)
[2018-07-21 05:18] LABS: BASOPHILS # (AUTO) 0.03 x10^3/uL (0-0.1); BASOPHILS % (AUTO) 0 % (0-1); EOSINOPHILS # (AUTO) 0.14 x10^3/uL (0-0.4); EOSINOPHILS % (AUTO) 1 % (1-7); LYMPHOCYTES # (AUTO) 1.77 x10^3/uL (1-3.4); LYMPHOCYTES % (AUTO) 14 % (22-44); MD NO; MEAN CORPUSCULAR HEMOGLOBIN 31.5 pg (27.5-34.5); MEAN CORPUSCULAR HGB CONC 34.1 g/dL (33.2-36.2); MEAN CORPUSCULAR VOLUME 92.3 fL (81-97); MEAN PLATELET VOLUME 6.8 fL (7.4-10.4); MONOCYTES # (AUTO) 0.94 x10^3/uL (0.2-0.8); MONOCYTES % (AUTO) 8 % (2-9); NEUTROPHILS % (AUTO) 77 % (42-75); PLATELET COUNT 198 x10^3/uL (130-400); RED BLOOD COUNT 3.15 x10^6/uL (4.38-5.82); RED CELL DISTRIBUTION WIDTH 13.1 % (9.4-14.8)
[2018-07-21 05:28] LABS: ALBUMIN 1.9 g/dL (3.4-5.0); ANION GAP 7 mmol/L (5-15); CALCIUM 7.8 mg/dL (8.5-10.1); CHLORIDE 109 mmol/L (98-107)
[2018-07-21 05:33] LABS: ALANINE AMINOTRANSFERASE 46 U/L (12-78); ALKALINE PHOSPHATASE 98 U/L (45-117); BILIRUBIN,TOTAL 1.2 mg/dL (0.2-1.0); TOTAL PROTEIN 5.5 g/dL (6.4-8.2)
[2018-07-21] MEDS: ACETAMINOPHEN 500 MG TABLET PO SCH ×3 (05:37→21:16)
[2018-07-21] MEDS: SODIUM CHLORIDE FLUSH 10ML SYR IVF SCH ×3 (05:37→21:17)
[2018-07-21 07:24] VITALS: BP 131/85
[2018-07-21] MEDS: TIMOLOL OP SCH ×2 (09:00→19:00)
[2018-07-21] MEDS: BRIMONIDINE TARTRATE OP SCH ×2 (09:00→19:00)
[2018-07-21] MEDS: DOCUSATE 100 MG CAPSULE PO SCH (09:24)
[2018-07-21] MEDS: CEFTRIAXONE PMX 2GM/50ML 50 ML IV SCH (09:25)
[2018-07-21] MEDS: NYSTATIN 500,000 UNITS/5 ML UDC PO SCH ×2 (09:25→21:16)
[2018-07-21] MEDS: AMLODIPINE 10 MG TAB PO SCH (09:25)
[2018-07-21] MEDS: CARVEDILOL 12.5 MG TABLET PO SCH ×2 (09:25→21:17)
[2018-07-21] MEDS: PIPERACILLIN/TAZO/PMX 4.5GM 100 ML IV SCH ×2 (11:06→18:34)
[2018-07-21 13:43] VITALS: BP 99/63
[2018-07-21] MEDS: BISACODYL 10 MG SUPP PR PRN (18:28)
[2018-07-21 18:33] VITALS: BP 107/71
[2018-07-21] MEDS: BIMATOPROST OP SCH (19:00)
[2018-07-21 21:15] VITALS: BP 123/80
[2018-07-22 00:15] VITALS: BP 113/73
[2018-07-22] MEDS: PIPERACILLIN/TAZO/PMX 4.5GM 100 ML IV SCH ×3 (02:36→19:44)
[2018-07-22] MEDS: ACETAMINOPHEN 500 MG TABLET PO SCH ×3 (06:12→21:16)
[2018-07-22] MEDS: SODIUM CHLORIDE FLUSH 10ML SYR IVF SCH ×3 (06:13→21:21)
[2018-07-22 07:09] VITALS: BP 121/81
[2018-07-22] MEDS: NYSTATIN 500,000 UNITS/5 ML UDC PO SCH ×2 (09:11→21:16)
[2018-07-22] MEDS: CARVEDILOL 12.5 MG TABLET PO SCH ×2 (09:11→21:17)
[2018-07-22] MEDS: AMLODIPINE 5 MG TABLET PO SCH (09:11)
[2018-07-22] MEDS: TIMOLOL OP SCH ×2 (09:20→21:00)
[2018-07-22] MEDS: BRIMONIDINE TARTRATE OP SCH ×2 (09:20→21:00)
[2018-07-22 10:28] LABS: BASOPHILS # (AUTO) 0.03 x10^3/uL (0-0.1); BASOPHILS % (AUTO) 0 % (0-1); EOSINOPHILS # (AUTO) 0.12 x10^3/uL (0-0.4); EOSINOPHILS % (AUTO) 1 % (1-7); LYMPHOCYTES # (AUTO) 1.85 x10^3/uL (1-3.4); LYMPHOCYTES % (AUTO) 17 % (22-44); MD NO; MEAN CORPUSCULAR HEMOGLOBIN 29.7 pg (27.5-34.5); MEAN CORPUSCULAR HGB CONC 32.6 g/dL (33.2-36.2); MONOCYTES % (AUTO) 9 % (2-9); NEUTROPHILS # (AUTO) 7.98 x10^3/uL (1.8-6.8); NEUTROPHILS % (AUTO) 73 % (42-75); PLATELET COUNT 207 x10^3/uL (130-400); RED BLOOD COUNT 3.23 x10^6/uL (4.38-5.82); RED CELL DISTRIBUTION WIDTH 13.4 % (9.4-14.8)
[2018-07-22 10:36] LABS: ANION GAP 8 mmol/L (5-15); CALCIUM 8.3 mg/dL (8.5-10.1); CHLORIDE 110 mmol/L (98-107); CREATININE 0.64 mg/dL (0.7-1.3)
[2018-07-22 15:58] VITALS: BP 107/71
[2018-07-22 20:10] VITALS: BP 123/80
[2018-07-22] MEDS: BIMATOPROST OP SCH (21:00)
[2018-07-22] MEDS: DOCUSATE 100 MG CAPSULE PO SCH (21:00)
[2018-07-23 02:55] VITALS: BP 115/78
[2018-07-23] MEDS: PIPERACILLIN/TAZO/PMX 4.5GM 100 ML IV SCH ×2 (03:45→12:09)
[2018-07-23 04:13] LABS: BASOPHILS # (AUTO) 0.03 x10^3/uL (0-0.1); BASOPHILS % (AUTO) 0 % (0-1); EOSINOPHILS # (AUTO) 0.29 x10^3/uL (0-0.4); EOSINOPHILS % (AUTO) 3 % (1-7); LYMPHOCYTES # (AUTO) 2.23 x10^3/uL (1-3.4); LYMPHOCYTES % (AUTO) 20 % (22-44); MD NO; MEAN CORPUSCULAR HEMOGLOBIN 29.8 pg (27.5-34.5); MEAN CORPUSCULAR HGB CONC 32.8 g/dL (33.2-36.2); MEAN CORPUSCULAR VOLUME 90.9 fL (81-97); MEAN PLATELET VOLUME 6.7 fL (7.4-10.4); MONOCYTES # (AUTO) 1.01 x10^3/uL (0.2-0.8); MONOCYTES % (AUTO) 9 % (2-9); NEUTROPHILS # (AUTO) 7.52 x10^3/uL (1.8-6.8); NEUTROPHILS % (AUTO) 68 % (42-75); PLATELET COUNT 219 x10^3/uL (130-400); RED BLOOD COUNT 3.26 x10^6/uL (4.38-5.82); RED CELL DISTRIBUTION WIDTH 13.7 % (9.4-14.8)
[2018-07-23 04:17] LABS: HCT (SEDRATE) 29.6 % (39.2-51.8)
[2018-07-23 04:21] LABS: ALANINE AMINOTRANSFERASE 62 U/L (12-78); ALBUMIN 2.2 g/dL (3.4-5.0); ANION GAP 8 mmol/L (5-15); CALCIUM 8.2 mg/dL (8.5-10.1); CHLORIDE 110 mmol/L (98-107); CREATININE 0.69 mg/dL (0.7-1.3)
[2018-07-23 04:30] LABS: ALKALINE PHOSPHATASE 105 U/L (45-117); BILIRUBIN,TOTAL 0.9 mg/dL (0.2-1.0); TOTAL PROTEIN 5.8 g/dL (6.4-8.2)
[2018-07-23] MEDS: SODIUM CHLORIDE FLUSH 10ML SYR IVF SCH ×3 (06:10→22:11)
[2018-07-23] MEDS: ACETAMINOPHEN 500 MG TABLET PO SCH ×3 (06:10→22:11)
[2018-07-23 07:25] VITALS: BP 116/78
[2018-07-23] MEDS: DOCUSATE 100 MG CAPSULE PO SCH (08:30)
[2018-07-23] MEDS: TIMOLOL OP SCH ×2 (09:00→20:49)
[2018-07-23] MEDS: BRIMONIDINE TARTRATE OP SCH ×2 (09:00→20:49)
[2018-07-23] MEDS: CARVEDILOL 12.5 MG TABLET PO SCH ×2 (09:35→20:49)
[2018-07-23] MEDS: NYSTATIN 500,000 UNITS/5 ML UDC PO SCH ×2 (09:35→20:49)
[2018-07-23] MEDS: AMLODIPINE 5 MG TABLET PO SCH (09:35)
[2018-07-23] MEDS: CEFEPIME 2 GM in DEXTROSE 5% 100 ML IV SCH ×2 (14:21→22:11)
[2018-07-23 14:40] VITALS: BP 99/67
[2018-07-23 19:35] VITALS: BP 104/67
[2018-07-23 20:43] VITALS: BP 102/65
[2018-07-23] MEDS: BIMATOPROST OP SCH (20:49)
[2018-07-23] MEDS: RIFAMPIN 300 MG CAPSULE PO SCH (20:49)
[2018-07-24 01:38] VITALS: BP 114/80
[2018-07-24 05:22] LABS: BASOPHILS # (AUTO) 0.03 x10^3/uL (0-0.1); BASOPHILS % (AUTO) 0 % (0-1); EOSINOPHILS # (AUTO) 0.24 x10^3/uL (0-0.4); EOSINOPHILS % (AUTO) 2 % (1-7); LYMPHOCYTES # (AUTO) 2.39 x10^3/uL (1-3.4); LYMPHOCYTES % (AUTO) 18 % (22-44); MD NO; MEAN CORPUSCULAR HEMOGLOBIN 30.3 pg (27.5-34.5); MEAN CORPUSCULAR HGB CONC 33.1 g/dL (33.2-36.2); MEAN CORPUSCULAR VOLUME 91.6 fL (81-97); MONOCYTES # (AUTO) 1.06 x10^3/uL (0.2-0.8); MONOCYTES % (AUTO) 8 % (2-9); NEUTROPHILS # (AUTO) 9.44 x10^3/uL (1.8-6.8); NEUTROPHILS % (AUTO) 72 % (42-75); PLATELET COUNT 230 x10^3/uL (130-400); RED BLOOD COUNT 3.36 x10^6/uL (4.38-5.82); RED CELL DISTRIBUTION WIDTH 13.8 % (9.4-14.8)
[2018-07-24 05:29] LABS: ALANINE AMINOTRANSFERASE 66 U/L (12-78); ALBUMIN 2.1 g/dL (3.4-5.0); ANION GAP 5 mmol/L (5-15); CHLORIDE 109 mmol/L (98-107); CREATININE 0.75 mg/dL (0.7-1.3)
[2018-07-24 05:36] LABS: ALKALINE PHOSPHATASE 114 U/L (45-117); BILIRUBIN,TOTAL 1.5 mg/dL (0.2-1.0)
[2018-07-24] MEDS: SODIUM CHLORIDE FLUSH 10ML SYR IVF SCH (06:19)
[2018-07-24] MEDS: ACETAMINOPHEN 500 MG TABLET PO SCH (06:19)
[2018-07-24] MEDS: CEFEPIME 2 GM in DEXTROSE 5% 100 ML IV SCH (06:19)
[2018-07-24] MEDS: DOCUSATE 100 MG CAPSULE PO SCH (07:15)
[2018-07-24] MEDS: TIMOLOL OP SCH (07:17)
[2018-07-24] MEDS: BRIMONIDINE TARTRATE OP SCH (07:17)
[2018-07-24 07:32] VITALS: BP 145/81
[2018-07-24] MEDS: AMLODIPINE 5 MG TABLET PO SCH (09:00)
[2018-07-24] MEDS: NYSTATIN 500,000 UNITS/5 ML UDC PO SCH (09:07)
[2018-07-24] MEDS: CARVEDILOL 12.5 MG TABLET PO SCH (09:08)
[2018-07-24] MEDS: RIFAMPIN 300 MG CAPSULE PO SCH (09:08)
[2018-07-24] MEDS ORDERED: AMLO-150 PO (09:31)
[2018-07-24] MEDS ORDERED: CARV12.543 PO ×2 (09:31→09:39)
[2018-07-24] MEDS ORDERED: TRAM50TA2 PO (09:31)
[2018-07-24] MEDS ORDERED: CEFE2PIG IV (09:40)
[2018-07-24] MEDS ORDERED: RIFA300C3 PO (09:41)
[2018-07-24] MEDS ORDERED: CARVEDILOL 25 MG TABLET PO SCH (21:00)
== END 2018-07-24 11:36 | DRG 466 ==
LOC: ED 15:49 → EDIP 17:20 → 5SO 22:56
PROVIDERS: ADMIT Hospitalist; ATTEND Hospitalist
PROC: 0SPR0JZ Removal of Synthetic Substitute from Right Hip Joint, Femoral Surface, Open Approach (ICD-10-PCS; 2018-07-17)
PROC: 0LQL0ZZ Repair Right Upper Leg Tendon, Open Approach (ICD-10-PCS; 2018-07-17)
PROC: 0SRR0JZ Replacement of Right Hip Joint, Femoral Surface with Synthetic Substitute, Open Approach (ICD-10-PCS; principal; 2018-07-17 19:00)
PROC: 02HV33Z Insertion of Infusion Device into Superior Vena Cava, Percutaneous Approach (ICD-10-PCS; 2018-07-20)
PROC: B548ZZA Ultrasonography of Superior Vena Cava, Guidance (ICD-10-PCS; 2018-07-20)
DX: T84.020A Dislocation of internal right hip prosthesis, initial encounter (principal); J18.9 Pneumonia, unspecified organism; E43 Unspecified severe protein-calorie malnutrition; R17 Unspecified jaundice; T84.51XA Infection and inflammatory reaction due to internal right hip prosthesis, initial encounter; F03.90 Unspecified dementia, unspecified severity, without behavioral disturbance, psychotic disturbance, mood disturbance, and anxiety; Z68.30 Body mass index [BMI] 30.0-30.9, adult; E78.00 Pure hypercholesterolemia, unspecified; G20 Parkinson's disease; I10 Essential (primary) hypertension; I35.1 Nonrheumatic aortic (valve) insufficiency; I48.2 Chronic atrial fibrillation; Y79.2 Prosthetic and other implants, materials and accessory orthopedic devices associated with adverse incidents; B96.1 Klebsiella pneumoniae [K. pneumoniae] as the cause of diseases classified elsewhere; I95.9 Hypotension, unspecified; Y83.1 Surgical operation with implant of artificial internal device as the cause of abnormal reaction of the patient, or of later complication, without mention of misadventure at the time of the procedure; B96.20 Unspecified Escherichia coli [E. coli] as the cause of diseases classified elsewhere; B95.61 Methicillin susceptible Staphylococcus aureus infection as the cause of diseases classified elsewhere; Z79.2 Long term (current) use of antibiotics; Z79.899 Other long term (current) drug therapy; Z82.49 Family history of ischemic heart disease and other diseases of the circulatory system; Z86.73 Personal history of transient ischemic attack (TIA), and cerebral infarction without residual deficits; Y92.89 Other specified places as the place of occurrence of the external cause
CPT/HCPCS: 27250; 36415; 36569; 36573; 71045; 72170; 76000; 76937; 77001; 80048; 80053; 82040; 83735; 84100; 85025; 85651; 86140; 87040; 87070; 87075; 87077; 87147; 87186; 87205; 93005; 94640; 96360; G0378; J0690; J0696; J1650; J2543; J2704; J2795; J3010; J3370; J7060; C1751; C1776; J1160; J7030; J7050

== ENCOUNTER 2018-10-08 14:27 | Inpatient (IN) | payer MEDICARE ==
[~2018-10-08] VITALS: Ht 175.3 cm; Wt 83.1 kg
[~2018-10-08 14:27] MED LIST changes: +ACET-1757 PO; +AMLO-150 PO; +CARV12.543 PO; +CEFE2PIG IV; +NYST1000 PO; +RIFA300C3 PO; +TRAM50TA2 PO
[2018-10-08] MEDS ORDERED: SODIUM CHLORIDE FLUSH 10ML SYR IVF ONE (15:30)
[2018-10-08] MEDS ORDERED: SODIUM CHLORIDE 0.9% 1,000ML IVBOLUS ONE (15:30)
[2018-10-08 15:39] LABS: INTERNATIONAL NORMALIZED RATIO 1.1 (0.93-1.1); PROTHROMBIN TIME 11.5 Seconds (9.6-11.5)
[2018-10-08 15:40] LABS: ANION GAP 7 mmol/L (5-15); CALCIUM 8.4 mg/dL (8.5-10.1); CHLORIDE 106 mmol/L (98-107)
[2018-10-08 15:41] LABS: CREATININE 1.05 mg/dL (0.7-1.3)
[2018-10-08 16:04] LABS: MEAN CORPUSCULAR HEMOGLOBIN 25.4 pg (27.5-34.5); MEAN CORPUSCULAR HGB CONC 31.9 g/dL (33.2-36.2); MEAN CORPUSCULAR VOLUME 79.6 fL (81-97); MEAN PLATELET VOLUME 6.9 fL (7.4-10.4); PLATELET COUNT 496 x10^3/uL (130-400); RED BLOOD COUNT 4.97 x10^6/uL (4.38-5.82)
[2018-10-08 16:06] LABS: RED CELL DISTRIBUTION WIDTH 20.4 % (9.4-14.8)
[2018-10-08 16:08] LABS: BASOPHILS # (AUTO) 0.05 x10^3/uL (0-0.1); BASOPHILS % (AUTO) 0 % (0-1); EOSINOPHILS # (AUTO) 0.08 x10^3/uL (0-0.4); EOSINOPHILS % (AUTO) 1 % (1-7); LYMPHOCYTES # (AUTO) 1.72 x10^3/uL (1-3.4); LYMPHOCYTES % (AUTO) 12 % (22-44); MD MORPH REVIEW ONLY; MONOCYTES # (AUTO) 0.71 x10^3/uL (0.2-0.8); MONOCYTES % (AUTO) 5 % (2-9); NEUTROPHILS # (AUTO) 12.04 x10^3/uL (1.8-6.8); NEUTROPHILS % (AUTO) 83 % (42-75)
[2018-10-08 16:10] LABS: ANISOCYTOSIS 1+; HYPOCHROMIA 1+; MICROCYTOSIS 1+; POLYCHROMASIA 1+
[2018-10-08 16:11] LABS: <PLATELET ESTIMATE> INCREASED; <PLT MORPHOLOGY> NORMAL PLT MORPH; OVALOCYTES 1+
--- NOTE | 2018-10-08 16:44 | NUR ---
Break RN note: Pt's brief changed and pt repositioned for comfort in bed. Pt and his family deny other needs at this time.
[2018-10-08] MEDS ORDERED: hydrALAzine 20 MG/ML, 1ML IVPush PRN (17:30)
[2018-10-08] MEDS ORDERED: SODIUM CHLORIDE FLUSH 10ML SYR IVF PRN (17:30)
[2018-10-08] MEDS ORDERED: ONDANSETRON 2MG/ML, 2ML IVPush PRN (17:30)
[2018-10-08] MEDS ORDERED: ACETAMINOPHEN 325 MG TABLET PO PRN (18:00)
--- NOTE | 2018-10-08 18:19 | NUR ---
REPORT TO BRIAN WHIPPLE. PT TO BE TRANSPORTED TO FLOOR WITH TECH. AT BEDSIDE
[2018-10-08 20:38] VITALS: BP 113/53
[2018-10-08] MEDS: NYSTATIN 500,000 UNITS/5 ML UDC PO SCH (21:00)
[2018-10-08] MEDS: BIMATOPROST OP SCH (21:00)
[2018-10-08] MEDS: CARVEDILOL 25 MG TABLET PO SCH (21:00)
[2018-10-08] MEDS: TIMOLOL OP SCH (21:00)
[2018-10-08] MEDS: BRIMONIDINE TARTRATE OP SCH (21:00)
[2018-10-08] MEDS: METRONIDAZOLE PMX 500MG/100ML 100 ML IV SCH (22:23)
[2018-10-08] MEDS: SODIUM CHLORIDE 0.9% 1,000 ML IV SCH (22:23)
[2018-10-08] MEDS: PANTOPRAZOLE 40 MG IV IVPush SCH (22:23)
[2018-10-08] MEDS: VANCOMYCIN 50 MG/ML ORAL SUSP PO SCH (22:24)
[2018-10-09 01:11] VITALS: BP 119/81
[2018-10-09] MEDS: VANCOMYCIN 50 MG/ML ORAL SUSP PO SCH ×3 (04:16→20:38)
[2018-10-09 05:49] LABS: BASOPHILS % (AUTO) 0 % (0-1); EOSINOPHILS % (AUTO) 1 % (1-7); LYMPHOCYTES # (AUTO) 1.75 x10^3/uL (1-3.4); LYMPHOCYTES % (AUTO) 16 % (22-44); MD NO; MEAN CORPUSCULAR HGB CONC 32.8 g/dL (33.2-36.2); MEAN CORPUSCULAR VOLUME 79.2 fL (81-97); MEAN PLATELET VOLUME 6.9 fL (7.4-10.4); MONOCYTES # (AUTO) 0.61 x10^3/uL (0.2-0.8); MONOCYTES % (AUTO) 6 % (2-9); NEUTROPHILS # (AUTO) 8.72 x10^3/uL (1.8-6.8); NEUTROPHILS % (AUTO) 78 % (42-75); PLATELET COUNT 414 x10^3/uL (130-400); RED BLOOD COUNT 4.71 x10^6/uL (4.38-5.82); RED CELL DISTRIBUTION WIDTH 20.5 % (9.4-14.8)
[2018-10-09 05:52] LABS: ANION GAP 8 mmol/L (5-15); CALCIUM 8.5 mg/dL (8.5-10.1); CHLORIDE 108 mmol/L (98-107); CREATININE 0.83 mg/dL (0.7-1.3)
[2018-10-09] MEDS: METRONIDAZOLE PMX 500MG/100ML 100 ML IV SCH ×3 (06:21→21:52)
[2018-10-09 07:51] VITALS: BP 141/88
[2018-10-09] MEDS: BRIMONIDINE TARTRATE OP SCH ×2 (09:00→20:38)
[2018-10-09] MEDS ORDERED: CYANOCOBALAMIN 1,000 MCG TABLET PO SCH (09:00)
[2018-10-09] MEDS ORDERED: AMLODIPINE 5 MG TABLET PO SCH (09:00)
[2018-10-09] MEDS: NYSTATIN 500,000 UNITS/5 ML UDC PO SCH ×2 (09:00→21:00)
[2018-10-09] MEDS ORDERED: ERGOCALCIFEROL 50,000 UNIT CAPSULE PO SCH (09:00)
[2018-10-09] MEDS: TIMOLOL OP SCH ×2 (09:00→20:38)
[2018-10-09] MEDS: PANTOPRAZOLE 40 MG IV IVPush SCH ×2 (09:00→20:38)
[2018-10-09] MEDS: SULFAMETH./TRIMETHOPRIM DS 800MG/160MG TABLET PO SCH (09:01)
[2018-10-09] MEDS: CARVEDILOL 25 MG TABLET PO SCH (09:01)
[2018-10-09 12:04] VITALS: BP 112/70
[2018-10-09] MEDS: SODIUM CHLORIDE 0.9% 1,000 ML IV SCH (15:04)
[2018-10-09 19:45] VITALS: BP 121/79
[2018-10-09] MEDS: BIMATOPROST OP SCH (20:38)
[2018-10-10 01:04] VITALS: BP 127/86
[2018-10-10] MEDS: VANCOMYCIN 50 MG/ML ORAL SUSP PO SCH ×4 (02:03→20:07)
[2018-10-10 05:28] LABS: ALBUMIN 2.8 g/dL (3.4-5.0); ANION GAP 6 mmol/L (5-15); CALCIUM 8.4 mg/dL (8.5-10.1); CHLORIDE 107 mmol/L (98-107)
[2018-10-10 05:30] LABS: BASOPHILS # (AUTO) 0.02 x10^3/uL (0-0.1); BASOPHILS % (AUTO) 0 % (0-1); EOSINOPHILS # (AUTO) 0.24 x10^3/uL (0-0.4); EOSINOPHILS % (AUTO) 3 % (1-7); LYMPHOCYTES # (AUTO) 1.53 x10^3/uL (1-3.4); LYMPHOCYTES % (AUTO) 17 % (22-44); MD NO; MEAN CORPUSCULAR HEMOGLOBIN 26.1 pg (27.5-34.5); MEAN CORPUSCULAR HGB CONC 33.1 g/dL (33.2-36.2); MEAN CORPUSCULAR VOLUME 78.9 fL (81-97); MEAN PLATELET VOLUME 6.8 fL (7.4-10.4); MONOCYTES # (AUTO) 0.51 x10^3/uL (0.2-0.8); MONOCYTES % (AUTO) 6 % (2-9); NEUTROPHILS # (AUTO) 6.53 x10^3/uL (1.8-6.8); NEUTROPHILS % (AUTO) 74 % (42-75); PLATELET COUNT 461 x10^3/uL (130-400); RED BLOOD COUNT 4.87 x10^6/uL (4.38-5.82); RED CELL DISTRIBUTION WIDTH 20.1 % (9.4-14.8)
[2018-10-10 05:35] LABS: ALANINE AMINOTRANSFERASE 21 U/L (12-78); ALKALINE PHOSPHATASE 111 U/L (45-117); BILIRUBIN,TOTAL 0.8 mg/dL (0.2-1.0); CREATININE 0.86 mg/dL (0.7-1.3); TOTAL PROTEIN 6.9 g/dL (6.4-8.2)
[2018-10-10] MEDS: METRONIDAZOLE PMX 500MG/100ML 100 ML IV SCH ×3 (05:54→21:48)
[2018-10-10 07:30] VITALS: BP 116/76
[2018-10-10] MEDS ORDERED: VANC1VIA3 PO (08:34)
[2018-10-10] MEDS: SODIUM CHLORIDE 0.9% 1,000 ML IV SCH (09:00)
[2018-10-10] MEDS: TIMOLOL OP SCH ×2 (09:00→20:07)
[2018-10-10] MEDS: PANTOPRAZOLE 40 MG IV IVPush SCH ×2 (09:00→17:00)
[2018-10-10] MEDS: BRIMONIDINE TARTRATE OP SCH ×2 (09:00→20:07)
[2018-10-10] MEDS: SULFAMETH./TRIMETHOPRIM DS 800MG/160MG TABLET PO SCH (09:51)
[2018-10-10] MEDS: NYSTATIN 500,000 UNITS/5 ML UDC PO SCH ×2 (09:52→20:06)
[2018-10-10 13:16] VITALS: BP 125/73
[2018-10-10 19:44] VITALS: BP 118/80
[2018-10-10] MEDS: BIMATOPROST OP SCH (20:06)
[2018-10-11 00:35] VITALS: BP 136/99
[2018-10-11] MEDS: SODIUM CHLORIDE 0.9% 1,000 ML IV SCH ×2 (01:32→16:05)
[2018-10-11] MEDS: VANCOMYCIN 50 MG/ML ORAL SUSP PO SCH ×4 (01:32→20:10)
[2018-10-11] MEDS: PANTOPRAZOLE 40 MG IV IVPush SCH (05:34)
[2018-10-11] MEDS: METRONIDAZOLE PMX 500MG/100ML 100 ML IV SCH ×3 (05:34→22:16)
[2018-10-11 07:13] VITALS: BP 132/94
[2018-10-11] MEDS: BRIMONIDINE TARTRATE OP SCH ×2 (07:44→20:10)
[2018-10-11] MEDS: TIMOLOL OP SCH ×2 (07:44→20:10)
[2018-10-11] MEDS: SULFAMETH./TRIMETHOPRIM DS 800MG/160MG TABLET PO SCH (07:47)
[2018-10-11] MEDS: NYSTATIN 500,000 UNITS/5 ML UDC PO SCH ×2 (08:18→20:10)
[2018-10-11 13:24] VITALS: BP 136/89
[2018-10-11 19:55] VITALS: BP 113/79
[2018-10-11] MEDS: BIMATOPROST OP SCH (20:09)
[2018-10-12 01:30] VITALS: BP 130/95
[2018-10-12] MEDS: VANCOMYCIN 50 MG/ML ORAL SUSP PO SCH ×3 (01:55→14:10)
[2018-10-12] MEDS: METRONIDAZOLE PMX 500MG/100ML 100 ML IV SCH ×2 (05:32→14:10)
[2018-10-12 06:45] VITALS: BP 134/89
[2018-10-12] MEDS: SODIUM CHLORIDE 0.9% 1,000 ML IV SCH (07:46)
[2018-10-12] MEDS: TIMOLOL OP SCH (07:46)
[2018-10-12] MEDS: BRIMONIDINE TARTRATE OP SCH (07:46)
[2018-10-12] MEDS: SULFAMETH./TRIMETHOPRIM DS 800MG/160MG TABLET PO SCH (07:46)
[2018-10-12] MEDS ORDERED: SULF-169 PO (09:22)
[2018-10-12] MEDS ORDERED: METR500T PO (09:24)
[2018-10-12] MEDS: NYSTATIN 500,000 UNITS/5 ML UDC PO SCH (09:43)
== END 2018-10-12 15:07 | DRG 372 ==
LOC: ED 16:32 → EDIP 17:02 → 3NE 20:30
PROVIDERS: ADMIT Internal Medicine; ATTEND Internal Medicine
DX: A04.72 Enterocolitis due to Clostridium difficile, not specified as recurrent (principal); D62 Acute posthemorrhagic anemia; K62.5 Hemorrhage of anus and rectum; E78.00 Pure hypercholesterolemia, unspecified; E78.5 Hyperlipidemia, unspecified; E86.0 Dehydration; G20 Parkinson's disease; I10 Essential (primary) hypertension; F02.80 Dementia in other diseases classified elsewhere, unspecified severity, without behavioral disturbance, psychotic disturbance, mood disturbance, and anxiety; I48.2 Chronic atrial fibrillation; Z79.2 Long term (current) use of antibiotics; Z86.73 Personal history of transient ischemic attack (TIA), and cerebral infarction without residual deficits
CPT/HCPCS: 36415; 80048; 80053; 82040; 85025; 85610; 85730; 86850; 86900; 99285; G0378; J3370; C9113; J7030

== ENCOUNTER 2019-02-13 18:20 | Inpatient (IN) | payer MEDICARE ==
[~2019-02-13] VITALS: Ht 175.3 cm; Wt 77.5 kg
[2019-02-18 13:38] VITALS: BP 108/74
== END 2019-02-18 19:20 | DRG 91 ==
LOC: ED 20:38 → EDIP 21:07 → 4EST 23:32
PROVIDERS: ADMIT Internal Medicine; ATTEND Internal Medicine
DX: G92 Toxic encephalopathy (principal); R53.2 Functional quadriplegia; D68.69 Other thrombophilia; E44.1 Mild protein-calorie malnutrition; E78.00 Pure hypercholesterolemia, unspecified; E78.5 Hyperlipidemia, unspecified; E86.0 Dehydration; F02.80 Dementia in other diseases classified elsewhere, unspecified severity, without behavioral disturbance, psychotic disturbance, mood disturbance, and anxiety; G20 Parkinson's disease; H70.91 Unspecified mastoiditis, right ear; I10 Essential (primary) hypertension; I48.2 Chronic atrial fibrillation; N30.90 Cystitis, unspecified without hematuria; Z74.01 Bed confinement status; Z82.49 Family history of ischemic heart disease and other diseases of the circulatory system; Z86.73 Personal history of transient ischemic attack (TIA), and cerebral infarction without residual deficits; Z99.3 Dependence on wheelchair; Z68.25 Body mass index [BMI] 25.0-25.9, adult
CPT/HCPCS: 36415; 70450; 80048; 80053; 80061; 81001; 83036; 83605; 83735; 84100; 84145; 84439; 84443; 85025; 85651; 86140; 87040; 87086; G0378; J0696; Q9967; J7030